=== PATIENT | male | born 1990 | race Caucasian/White ===

== ENCOUNTER 2019-08-02 19:26 | Emergency (ER) | payer MEDICAID ==
[~2019-08-02] VITALS: Ht 190.5 cm; Wt 86.2 kg
== END 2019-08-02 23:18 | disposition short-term general hospital (02) ==
LOC: ED 19:26
DX: S02.40EA Zygomatic fracture, right side, initial encounter for closed fracture (principal); S02.40CA Maxillary fracture, right side, initial encounter for closed fracture; Z23 Encounter for immunization; F17.200 Nicotine dependence, unspecified, uncomplicated; Y04.2XXA Assault by strike against or bumped into by another person, initial encounter
CPT/HCPCS: 70450; 70486; 72125; 74177; 80053; 81001; 85025; 90471; 90715; 99285-25; J1170; J2405; Q9967